=== PATIENT | female | born 1945 | race Caucasian/White ===

== ENCOUNTER 2017-10-13 12:38 | Emergency (ER) | payer MEDICARE, OTHER ==
[~2017-10-13] VITALS: Ht 162.6 cm; Wt 82.0 kg
[~2017-10-13 12:38] MED LIST: BENZ1TAB61 PO; CIPR500T87 PO; DIVA250T14 PO; DOCU-131 PO; LEVO50TA5 PO; ONDA4TAB12 PO; PANT40TA5 PO; RISP1TAB3 PO; RISP4TAB2 PO; SUCR1ORA11 PO
[2017-10-13] MEDS ORDERED: SODIUM CHLORIDE FLUSH 10ML SYR IVF ONE (13:00)
[2017-10-13] MEDS ORDERED: ONDANSETRON 2MG/ML, 2ML IVPush ONE (13:00)
[2017-10-13] MEDS ORDERED: SODIUM CHLORIDE 0.9% 1,000ML IVBOLUS ONE (13:00)
[2017-10-13] MEDS ORDERED: ONDANSETRON 2MG/ML, 2ML ONE ×2 (13:02→14:18)
[2017-10-13 13:15] LABS: BASOPHILS # (AUTO) 0.02 x10^3/uL (0-0.1); BASOPHILS % (AUTO) 0 % (0-1); EOSINOPHILS # (AUTO) 0.03 x10^3/uL (0-0.4); EOSINOPHILS % (AUTO) 0 % (1-7); LYMPHOCYTES # (AUTO) 0.38 x10^3/uL (1-3.4); LYMPHOCYTES % (AUTO) 5 % (22-44); MD NO; MEAN CORPUSCULAR HEMOGLOBIN 30.4 pg (27.0-34.8); MEAN CORPUSCULAR HGB CONC 33.2 g/dL (32.4-35.8); MEAN CORPUSCULAR VOLUME 91.7 fL (80-100); MEAN PLATELET VOLUME 8.3 fL (7.4-10.4); MONOCYTES # (AUTO) 0.66 x10^3/uL (0.2-0.8); MONOCYTES % (AUTO) 9 % (2-9); NEUTROPHILS # (AUTO) 6.53 x10^3/uL (1.8-6.8); NEUTROPHILS % (AUTO) 86 % (42-75); PLATELET COUNT 150 x10^3/uL (130-400); RED BLOOD COUNT 4.62 x10^6/uL (3.82-5.3); RED CELL DISTRIBUTION WIDTH 14.3 % (9.6-15.2)
[2017-10-13 13:20] VITALS: BP 142/80
[2017-10-13 13:24] LABS: ALANINE AMINOTRANSFERASE 20 U/L (12-78); ALBUMIN 3.3 g/dL (3.4-5.0); ANION GAP 7 mmol/L (5-15); CALCIUM 8.7 mg/dL (8.5-10.1); CHLORIDE 108 mmol/L (98-107); CREATININE 0.82 mg/dL (0.55-1.02)
[2017-10-13 13:28] LABS: ALKALINE PHOSPHATASE 67 U/L (45-117); BILIRUBIN,TOTAL 0.3 mg/dL (0.2-1.0); TOTAL PROTEIN 7.2 g/dL (6.4-8.2); TROPONIN I < 0.015 ng/mL (0.000-0.045)
[2017-10-13 14:13] LABS: MICROSCOPIC INDICATED
[2017-10-13 14:14] LABS: CULTURE INDICATED? YES
== END 2017-10-13 15:56 | disposition home or self-care (01) ==
LOC: ED 13:32
DX: R53.1 Weakness (principal); N39.0 Urinary tract infection, site not specified; Z90.49 Acquired absence of other specified parts of digestive tract
CPT/HCPCS: 36415; 70450; 71045; 80053; 81001; 84484; 85025; 86850; 86900; 87077; 87086; 87186; 93005; 96361; 96374; 99285; J2405; J7030

== ENCOUNTER 2018-08-09 13:07 | Inpatient (IN) | payer MEDICARE, OTHER ==
[~2018-08-09] VITALS: Ht 162.6 cm; Wt 95.9 kg
[2018-08-09 13:27] LABS: MEAN CORPUSCULAR HEMOGLOBIN 30.8 pg (27.0-34.8); MEAN CORPUSCULAR HGB CONC 32.6 g/dL (32.4-35.8); MEAN CORPUSCULAR VOLUME 94.6 fL (80-100); MEAN PLATELET VOLUME 8.7 fL (7.4-10.4); PLATELET COUNT 168 x10^3/uL (130-400); RED BLOOD COUNT 4.38 x10^6/uL (3.82-5.3); RED CELL DISTRIBUTION WIDTH 14.1 % (9.6-15.2)
[2018-08-09] MEDS ORDERED: PLEASE ENTER HEIGHT AND WEIGHT MC SCH ×2 (13:30→17:00)
[2018-08-09] MEDS ORDERED: SODIUM CHLORIDE 0.9% 1,000ML IVBOLUS ONE ×2 (13:30→14:00)
[2018-08-09] MEDS ORDERED: AMPICILLIN/SULBACTAM 3 GM in SODIUM CHLORIDE 0.9% 100 ML IV ONE (13:30)
[2018-08-09] MEDS ORDERED: PLEASE ENTER ALLERGIES MC SCH (13:30)
[2018-08-09] MEDS ORDERED: EPINEPHRINE SYRINGE 0.1 MG/ML, 10ML ONE (13:33)
[2018-08-09] MEDS ORDERED: NOREPINEPHRINE 1 MG/ML, 4ML ONE (13:34)
[2018-08-09 13:38] LABS: INTERNATIONAL NORMALIZED RATIO 1.18 (0.93-1.1); PROTHROMBIN TIME 12.2 Seconds (9.6-11.5)
[2018-08-09 13:40] LABS: ALANINE AMINOTRANSFERASE 161 U/L (12-78); ALBUMIN 2.3 g/dL (3.4-5.0); ANION GAP 18 mmol/L (5-15); CALCIUM 7.4 mg/dL (8.5-10.1); CHLORIDE 109 mmol/L (98-107)
[2018-08-09 13:42] LABS: MD YES
[2018-08-09 13:43] LABS: ALKALINE PHOSPHATASE 122 U/L (45-117); BILIRUBIN,TOTAL 0.3 mg/dL (0.2-1.0); TOTAL PROTEIN 5.4 g/dL (6.4-8.2)
[2018-08-09 13:44] LABS: BAND#(MANUAL) 1.13 x10^3/uL; BANDS%(MANUAL) 6 % (0-7); EOS#(MANUAL) 0.19 x10^3/uL (0.0-0.4); EOS% (MANUAL) 1 % (1-7); MONOS#(MANUAL) 1.32 x10^3/uL (0.3-2.7); MONOS% (MANUAL) 7 % (2-9)
[2018-08-09 13:45] LABS: LYMPHS% (MANUAL) 42 % (22-44); SEG#(MANUAL) 8.27 x10^3/uL (1.8-6.8); SEGS% (MANUAL) 44 % (42-75)
[2018-08-09 13:46] LABS: <RBC MORPHOLOGY> NORMAL
[2018-08-09 13:47] LABS: <PLATELET ESTIMATE> ADEQUATE; <PLT MORPHOLOGY> NORMAL PLT MORPH; TROPONIN I < 0.015 ng/mL (0.000-0.045)
[2018-08-09] MEDS ORDERED: PROPOFOL 100 ML IV PRN (13:56)
[2018-08-09] MEDS ORDERED: FENTANYL PF 100 MCG/2ML ONE ×2 (14:00→14:31)
[2018-08-09] MEDS: AMPICILLIN/SULBACTAM 3 GM in SODIUM CHLORIDE 0.9% 100 ML IV SCH ×2 (14:00→21:31)
[2018-08-09] MEDS ORDERED: FENTANYL PF 100 MCG/2ML IV ONE ×2 (14:00→15:00)
[2018-08-09] MEDS ORDERED: CODE BLUE RESPONSE XX ONE (14:00)
[2018-08-09 14:20] LABS: MICROSCOPIC AUTO
[2018-08-09 14:24] LABS: CULTURE INDICATED? YES
[2018-08-09] MEDS: SODIUM CHLORIDE 0.9% 1,000 ML IV SCH (14:28)
[2018-08-09] MEDS ORDERED: ENALAPRILAT 1.25 MG/ML, 2ML IVPush PRN (14:30)
[2018-08-09] MEDS ORDERED: OXYcodone IR 5MG TABLET PO PRN (14:30)
[2018-08-09] MEDS ORDERED: LORazepam 2 MG/ML, 1ML IVPush PRN (14:30)
[2018-08-09] MEDS ORDERED: ACETAMINOPHEN 325 MG TABLET PO PRN (14:30)
[2018-08-09] MEDS ORDERED: ONDANSETRON 2MG/ML, 2ML IVPush PRN (14:30)
[2018-08-09] MEDS ORDERED: BISACODYL 10 MG SUPP PR PRN (14:30)
[2018-08-09] MEDS ORDERED: ONDANSETRON ODT 4 MG PO PRN (14:30)
[2018-08-09] MEDS ORDERED: POLYETHYLENE GLYCOL 17 GM PACKET PO PRN (14:30)
[2018-08-09] MEDS ORDERED: SODIUM CHLORIDE 0.9% 1,000 ML IV ONE (14:30)
[2018-08-09] MEDS ORDERED: morphine SULFATE 10 MG/ML, 1ML IVPush PRN (14:30)
[2018-08-09] MEDS ORDERED: PROPOFOL 10 MG/ML, 20ML ONE (14:31)
[2018-08-09] MEDS ORDERED: PROPOFOL 100 ML IV ONE (14:32)
[2018-08-09] MEDS ORDERED: NOREPINEPHRINE 4 MG in SODIUM CHLORIDE 0.9% 246 ML IV PRN ×2 (14:52→18:30)
[2018-08-09 15:04] LABS: FREE T4 (FREE THYROXINE) 0.86 ng/dL (0.76-1.46); THYROID STIMULATING HORMONE 4.85 mIU/L (0.358-3.740)
[2018-08-09 15:29] LABS: HEMOGLOBIN A1C 5.5 % (4.2-6.3)
[2018-08-09] MEDS: INSULIN LISPRO 100 UNITS/ML, PEN SQ-INSULIN SCH ×2 (16:00→21:00)
[2018-08-09 16:03] VITALS: BP 101/72
[2018-08-09] MEDS ORDERED: FENTANYL PF 250 MCG in SODIUM CHLORIDE 0.9% 245 ML IV PRN (17:13)
[2018-08-09] MEDS ORDERED: SODIUM PHOSPHATE 20 MMOL in SODIUM CHLORIDE 0.9% 250 ML IVPB PRN (17:13)
[2018-08-09] MEDS: PLEASE ENTER HEIGHT MC SCH (17:28)
[2018-08-09] MEDS ORDERED: PHARMACY MAY ADJ FOR RENAL FX MC SCH (17:30)
[2018-08-09] MEDS: KSCALE TO 4.0 IV SCH ×2 (17:30→21:30)
[2018-08-09] MEDS ORDERED: FENTANYL PF 100 MCG/2ML IVPush PRN (17:30)
[2018-08-09] MEDS ORDERED: LIDOCAINE-MPF 1%, 2ML ENDO PRN (17:30)
[2018-08-09] MEDS ORDERED: VECURONIUM 10 MG IVPush PRN (17:30)
[2018-08-09] MEDS: ENOXAPARIN 40 MG/0.4 ML SQ SCH (17:41)
[2018-08-09] MEDS ORDERED: MAGNESIUM SULFATE 1 GM in SODIUM CHLORIDE 0.9% 50 ML IVPB PRN (18:00)
[2018-08-09] MEDS: BUSPIRONE 10 MG TABLET NG SCH (18:36)
[2018-08-09 18:40] LABS: TROPONIN I 0.143 ng/mL (0.000-0.045)
[2018-08-09] MEDS ORDERED: MIDAZOLAM 1 MG/ML, 2ML IVPush ONE (19:30)
[2018-08-09] MEDS ORDERED: MIDAZOLAM HCL 25 MG in SODIUM CHLORIDE 0.9% 245 ML IV PRN (19:30)
[2018-08-09] MEDS ORDERED: VASOPRESSIN 100 UNIT in SODIUM CHLORIDE 0.9% 495 ML IV PRN (19:30)
[2018-08-09] MEDS ORDERED: PHENYLEPHRINE 20 MG in SODIUM CHLORIDE 0.9% 248 ML IV PRN (19:30)
[2018-08-09] MEDS ORDERED: MAGNESIUM SULFATE 4 GM in SODIUM CHLORIDE 0.9% 100 ML IV ONE (19:30)
[2018-08-09] MEDS ORDERED: SODIUM BICARB 8.4%, 50ML SYRINGE IVPush ONE (19:30)
[2018-08-09] MEDS ORDERED: POTASSIUM CHLORIDE 30 MEQ in SODIUM CHLORIDE 0.9% 100 ML IV ONE (19:30)
[2018-08-09] MEDS: ARTIFICIAL TEARS OINT 3.5 GM EACHEYE SCH (20:13)
[2018-08-09] MEDS ORDERED: FENTANYL PF 2,500 MCG in SODIUM CHLORIDE 0.9% 200 ML IV PRN (20:32)
[2018-08-09] MEDS ORDERED: DIVALPROEX 250 MG TAB.ER.24H PO SCH (21:00)
[2018-08-09] MEDS ORDERED: RISPERIDONE 1 MG TABLET PO SCH (21:00)
[2018-08-09] MEDS: PROPOFOL 100 ML IV PRN (21:27)
[2018-08-09] MEDS: FAMOTIDINE 20 MG/2 ML IVPush SCH (21:31)
[2018-08-09] MEDS: BENZTROPINE 1 MG TABLET PO SCH (21:31)
[2018-08-09] MEDS ORDERED: DIVALPROEX 125 MG CAP.SPRINK PO SCH (21:35)
[2018-08-10 00:17] LABS: TROPONIN I 0.896 ng/mL (0.000-0.045)
[2018-08-10] MEDS: PLEASE ENTER HEIGHT MC SCH (01:28)
[2018-08-10] MEDS: KSCALE TO 4.0 IV SCH ×6 (01:30→21:30)
[2018-08-10] MEDS ORDERED: POTASSIUM CHLORIDE PMX 100 ML IV ONE (01:30)
[2018-08-10] MEDS: ARTIFICIAL TEARS OINT 3.5 GM EACHEYE SCH ×3 (01:55→17:44)
[2018-08-10] MEDS: BUSPIRONE 10 MG TABLET NG SCH ×3 (02:00→17:44)
[2018-08-10] MEDS: AMPICILLIN/SULBACTAM 3 GM in SODIUM CHLORIDE 0.9% 100 ML IV SCH ×4 (03:03→20:17)
[2018-08-10 05:20] LABS: BASOPHILS % (AUTO) 0 % (0-1); EOSINOPHILS # (AUTO) 0.01 x10^3/uL (0-0.4); EOSINOPHILS % (AUTO) 0 % (1-7); LYMPHOCYTES # (AUTO) 0.89 x10^3/uL (1-3.4); LYMPHOCYTES % (AUTO) 6 % (22-44); MD NO; MEAN CORPUSCULAR HGB CONC 33.4 g/dL (32.4-35.8); MEAN CORPUSCULAR VOLUME 92.7 fL (80-100); MEAN PLATELET VOLUME 8.2 fL (7.4-10.4); MONOCYTES # (AUTO) 0.86 x10^3/uL (0.2-0.8); MONOCYTES % (AUTO) 5 % (2-9); NEUTROPHILS # (AUTO) 14.26 x10^3/uL (1.8-6.8); NEUTROPHILS % (AUTO) 89 % (42-75); PLATELET COUNT 166 x10^3/uL (130-400); RED BLOOD COUNT 4.18 x10^6/uL (3.82-5.3); RED CELL DISTRIBUTION WIDTH 14.1 % (9.6-15.2)
[2018-08-10 05:29] LABS: ALBUMIN 2.3 g/dL (3.4-5.0); ANION GAP 10 mmol/L (5-15); CALCIUM 6.8 mg/dL (8.5-10.1); CHLORIDE 117 mmol/L (98-107)
[2018-08-10 05:32] LABS: ALANINE AMINOTRANSFERASE 134 U/L (12-78); ALKALINE PHOSPHATASE 78 U/L (45-117); BILIRUBIN,TOTAL 0.3 mg/dL (0.2-1.0); CREATININE 0.65 mg/dL (0.55-1.02); TOTAL PROTEIN 5.2 g/dL (6.4-8.2)
[2018-08-10] MEDS: PROPOFOL 100 ML IV PRN ×2 (06:04→13:02)
[2018-08-10] MEDS: SODIUM CHLORIDE 0.9% 1,000 ML IV SCH ×2 (06:05→14:48)
[2018-08-10] MEDS: INSULIN LISPRO 100 UNITS/ML, PEN SQ-INSULIN SCH ×4 (07:00→21:00)
[2018-08-10] MEDS: SENNA/DOCUSATE TABLET PO SCH (08:48)
[2018-08-10] MEDS: FAMOTIDINE 20 MG/2 ML IVPush SCH ×2 (09:21→20:52)
[2018-08-10] MEDS: LEVOTHYROXINE 50 MCG TABLET PO SCH (09:22)
[2018-08-10] MEDS: BENZTROPINE 1 MG TABLET PO SCH ×2 (09:22→20:53)
[2018-08-10] MEDS: RISPERIDONE 1 MG/ML ORAL SOLN PO SCH ×2 (09:59→21:01)
[2018-08-10] MEDS: VALPROATE SODIUM 250 MG/5 ML ORAL SOLN PO SCH ×2 (09:59→20:52)
[2018-08-10] MEDS: NOREPINEPHRINE 8 MG in SODIUM CHLORIDE 0.9% 242 ML IV PRN ×2 (10:55→22:39)
[2018-08-10] MEDS ORDERED: SODIUM CHLORIDE 0.9% 1,000ML IVBOLUS ONE (13:30)
[2018-08-10] MEDS: ENOXAPARIN 40 MG/0.4 ML SQ SCH (14:48)
[2018-08-10 14:53] LABS: ANION GAP 11 mmol/L (5-15); CALCIUM 7.5 mg/dL (8.5-10.1); CHLORIDE 118 mmol/L (98-107); CREATININE 0.57 mg/dL (0.55-1.02)
[2018-08-10] MEDS ORDERED: FUROSEMIDE 20 MG/2 ML ONE (15:10)
[2018-08-10] MEDS ORDERED: FUROSEMIDE 20 MG/2 ML IV ONE (15:30)
[2018-08-11] MEDS: BUSPIRONE 10 MG TABLET NG SCH (01:04)
[2018-08-11] MEDS: ARTIFICIAL TEARS OINT 3.5 GM EACHEYE SCH ×3 (01:04→16:08)
[2018-08-11] MEDS: KSCALE TO 4.0 IV SCH ×4 (01:30→14:31)
[2018-08-11] MEDS: AMPICILLIN/SULBACTAM 3 GM in SODIUM CHLORIDE 0.9% 100 ML IV SCH ×4 (01:57→20:05)
[2018-08-11] MEDS: PROPOFOL 100 ML IV PRN (05:03)
[2018-08-11 06:15] LABS: MEAN CORPUSCULAR HEMOGLOBIN 31.3 pg (27.0-34.8); MEAN CORPUSCULAR HGB CONC 34.2 g/dL (32.4-35.8); MEAN CORPUSCULAR VOLUME 91.5 fL (80-100); MEAN PLATELET VOLUME 8.9 fL (7.4-10.4); PLATELET COUNT 119 x10^3/uL (130-400); RED BLOOD COUNT 3.95 x10^6/uL (3.82-5.3); RED CELL DISTRIBUTION WIDTH 14.3 % (9.6-15.2)
[2018-08-11] MEDS: NOREPINEPHRINE 8 MG in SODIUM CHLORIDE 0.9% 242 ML IV PRN (06:16)
[2018-08-11 06:17] LABS: CALCIUM 7.1 mg/dL (8.5-10.1); CHLORIDE 117 mmol/L (98-107)
[2018-08-11 06:23] LABS: ALANINE AMINOTRANSFERASE 100 U/L (12-78); ALBUMIN 2.3 g/dL (3.4-5.0); ALKALINE PHOSPHATASE 73 U/L (45-117); ANION GAP 11 mmol/L (5-15); BILIRUBIN,TOTAL 0.4 mg/dL (0.2-1.0); CREATININE 0.49 mg/dL (0.55-1.02); TOTAL PROTEIN 5.2 g/dL (6.4-8.2)
[2018-08-11 06:32] LABS: MD YES
[2018-08-11 06:36] LABS: <RBC MORPHOLOGY> NORMAL; BAND#(MANUAL) 1.82 x10^3/uL; BANDS%(MANUAL) 13 % (0-7); LYMPH#(MANUAL) 1.12 x10^3/uL (1-3.4); LYMPHS% (MANUAL) 8 % (22-44); MONOS#(MANUAL) 0.14 x10^3/uL (0.3-2.7); MONOS% (MANUAL) 1 % (2-9); SEG#(MANUAL) 10.92 x10^3/uL (1.8-6.8); SEGS% (MANUAL) 78 % (42-75)
[2018-08-11 06:37] LABS: <PLATELET ESTIMATE> DECREASED; <PLT MORPHOLOGY> NORMAL PLT MORPH
[2018-08-11] MEDS ORDERED: POTASSIUM CHLORIDE PMX 100 ML IV ONE ×3 (07:00→14:30)
[2018-08-11] MEDS: INSULIN LISPRO 100 UNITS/ML, PEN SQ-INSULIN SCH (08:12)
[2018-08-11] MEDS: BENZTROPINE 1 MG TABLET PO SCH ×2 (09:07→21:39)
[2018-08-11] MEDS: RISPERIDONE 1 MG/ML ORAL SOLN PO SCH ×2 (09:08→21:40)
[2018-08-11] MEDS: SENNA/DOCUSATE TABLET PO SCH (09:08)
[2018-08-11] MEDS: VALPROATE SODIUM 250 MG/5 ML ORAL SOLN PO SCH ×2 (09:08→21:39)
[2018-08-11] MEDS: FAMOTIDINE 20 MG/2 ML IVPush SCH ×2 (10:03→21:39)
[2018-08-11] MEDS: LEVOTHYROXINE 50 MCG TABLET PO SCH (10:03)
[2018-08-11] MEDS: SODIUM CHLORIDE 0.9% 1,000 ML IV SCH ×4 (10:04→22:29)
[2018-08-11] MEDS ORDERED: CALCIUM CHLORIDE 13.6 MEQ in DEXTROSE 5% 100 ML IV ONE (11:00)
[2018-08-11] MEDS: ENOXAPARIN 40 MG/0.4 ML SQ SCH (15:12)
[2018-08-11] MEDS ORDERED: CALCIUM CHLORIDE IV ONE (16:00)
[2018-08-11] MEDS ORDERED: DEXTROSE 5% IV ONE (16:00)
[2018-08-11] MEDS ORDERED: SODIUM CHLORIDE 0.9%, 500ML IVBOLUS ONE (18:30)
[2018-08-12] MEDS: ARTIFICIAL TEARS OINT 3.5 GM EACHEYE SCH ×3 (00:52→17:33)
[2018-08-12] MEDS: AMPICILLIN/SULBACTAM 3 GM in SODIUM CHLORIDE 0.9% 100 ML IV SCH ×4 (01:58→20:16)
[2018-08-12 04:22] LABS: ALANINE AMINOTRANSFERASE 56 U/L (12-78); ALBUMIN 1.8 g/dL (3.4-5.0); ANION GAP 8 mmol/L (5-15); CALCIUM 7.4 mg/dL (8.5-10.1); CHLORIDE 120 mmol/L (98-107); CREATININE 0.49 mg/dL (0.55-1.02); TRIGLYCERIDES 92 mg/dL (50-200)
[2018-08-12 04:24] LABS: ALKALINE PHOSPHATASE 56 U/L (45-117); BILIRUBIN,TOTAL 0.4 mg/dL (0.2-1.0); TOTAL PROTEIN 4.6 g/dL (6.4-8.2)
[2018-08-12 04:46] LABS: MD YES; MEAN CORPUSCULAR HEMOGLOBIN 31.5 pg (27.0-34.8); MEAN CORPUSCULAR HGB CONC 34.5 g/dL (32.4-35.8); MEAN CORPUSCULAR VOLUME 91.1 fL (80-100); MEAN PLATELET VOLUME 9.2 fL (7.4-10.4); PLATELET COUNT 80 x10^3/uL (130-400); RED BLOOD COUNT 3.27 x10^6/uL (3.82-5.3); RED CELL DISTRIBUTION WIDTH 14.1 % (9.6-15.2)
[2018-08-12 04:48] LABS: <PLATELET ESTIMATE> DECREASED; <PLT MORPHOLOGY> NORMAL PLT MORPH; <RBC MORPHOLOGY> NORMAL; BAND#(MANUAL) 0.81 x10^3/uL; BANDS%(MANUAL) 10 % (0-7); LYMPH#(MANUAL) 0.57 x10^3/uL (1-3.4); LYMPHS% (MANUAL) 7 % (22-44); MONOS#(MANUAL) 0.32 x10^3/uL (0.3-2.7); MONOS% (MANUAL) 4 % (2-9); SEGS% (MANUAL) 79 % (42-75)
[2018-08-12] MEDS: FAMOTIDINE 20 MG/2 ML IVPush SCH ×2 (08:50→20:16)
[2018-08-12] MEDS: BENZTROPINE 1 MG TABLET PO SCH ×2 (08:50→20:16)
[2018-08-12] MEDS: LEVOTHYROXINE 50 MCG TABLET PO SCH (08:50)
[2018-08-12] MEDS: SENNA/DOCUSATE TABLET PO SCH (08:50)
[2018-08-12] MEDS: VALPROATE SODIUM 250 MG/5 ML ORAL SOLN PO SCH ×2 (08:51→20:16)
[2018-08-12] MEDS: RISPERIDONE 1 MG/ML ORAL SOLN PO SCH ×2 (08:51→20:16)
[2018-08-12] MEDS ORDERED: FENTANYL PF 2,500 MCG in SODIUM CHLORIDE 0.9% 200 ML IV PRN (09:00)
[2018-08-12] MEDS ORDERED: FENTANYL PF 100 MCG/2ML IVPush PRN (09:30)
[2018-08-12] MEDS ORDERED: hydrALAzine 20 MG/ML, 1ML ONE (10:06)
[2018-08-12] MEDS ORDERED: hydrALAzine 20 MG/ML, 1ML IV PRN (10:30)
[2018-08-12] MEDS: ENOXAPARIN 40 MG/0.4 ML SQ SCH (14:20)
[2018-08-13] MEDS: ARTIFICIAL TEARS OINT 3.5 GM EACHEYE SCH ×3 (00:50→18:07)
[2018-08-13] MEDS ORDERED: LACTATED RINGERS 500 ML IVBOLUS ONE ×2 (01:00→02:00)
[2018-08-13] MEDS: AMPICILLIN/SULBACTAM 3 GM in SODIUM CHLORIDE 0.9% 100 ML IV SCH ×4 (02:15→20:22)
[2018-08-13 04:28] LABS: MEAN CORPUSCULAR HEMOGLOBIN 31.4 pg (27.0-34.8); MEAN CORPUSCULAR HGB CONC 34.2 g/dL (32.4-35.8); MEAN CORPUSCULAR VOLUME 91.7 fL (80-100); MEAN PLATELET VOLUME 8.9 fL (7.4-10.4); PLATELET COUNT 72 x10^3/uL (130-400); RED BLOOD COUNT 2.89 x10^6/uL (3.82-5.3); RED CELL DISTRIBUTION WIDTH 14.7 % (9.6-15.2)
[2018-08-13 04:35] LABS: ALANINE AMINOTRANSFERASE 42 U/L (12-78); ALBUMIN 1.7 g/dL (3.4-5.0); ANION GAP 8 mmol/L (5-15); CALCIUM 7.3 mg/dL (8.5-10.1); CHLORIDE 119 mmol/L (98-107); CREATININE 0.46 mg/dL (0.55-1.02)
[2018-08-13 04:37] LABS: ALKALINE PHOSPHATASE 53 U/L (45-117); BILIRUBIN,TOTAL 0.6 mg/dL (0.2-1.0); TOTAL PROTEIN 4.7 g/dL (6.4-8.2)
[2018-08-13 04:59] LABS: MD YES
[2018-08-13 05:01] LABS: BAND#(MANUAL) 0.23 x10^3/uL; BANDS%(MANUAL) 3 % (0-7); LYMPH#(MANUAL) 0.78 x10^3/uL (1-3.4); LYMPHS% (MANUAL) 10 % (22-44); MONOS#(MANUAL) 0.39 x10^3/uL (0.3-2.7); MONOS% (MANUAL) 5 % (2-9); SEGS% (MANUAL) 82 % (42-75)
[2018-08-13 05:02] LABS: <PLATELET ESTIMATE> DECREASED; <PLT MORPHOLOGY> NORMAL PLT MORPH; ANISOCYTOSIS 1+
[2018-08-13] MEDS ORDERED: POTASSIUM PHOSPHATE 44 MEQ in SODIUM CHLORIDE 0.9% 500 ML IV ONE (08:00)
[2018-08-13] MEDS: FAMOTIDINE 20 MG/2 ML IVPush SCH ×2 (08:13→21:24)
[2018-08-13] MEDS: SENNA/DOCUSATE TABLET PO SCH (08:13)
[2018-08-13] MEDS: BENZTROPINE 1 MG TABLET PO SCH ×2 (08:13→21:25)
[2018-08-13] MEDS: ENALAPRILAT 1.25 MG/ML, 2ML IV PRN (08:13)
[2018-08-13] MEDS: LEVOTHYROXINE 50 MCG TABLET PO SCH (08:14)
[2018-08-13] MEDS: VALPROATE SODIUM 250 MG/5 ML ORAL SOLN PO SCH ×2 (08:14→21:24)
[2018-08-13] MEDS: RISPERIDONE 1 MG/ML ORAL SOLN PO SCH ×2 (08:15→21:25)
[2018-08-13] MEDS ORDERED: FENTANYL PF 2,500 MCG in SODIUM CHLORIDE 0.9% 200 ML IV PRN (10:00)
[2018-08-13] MEDS: hydrALAzine 20 MG/ML, 1ML IV PRN (12:51)
[2018-08-13] MEDS: ENOXAPARIN 40 MG/0.4 ML SQ SCH (14:44)
[2018-08-13] MEDS ORDERED: SODIUM CHLORIDE 0.9%, 500ML IVBOLUS ONE (15:00)
[2018-08-14] MEDS: hydrALAzine 20 MG/ML, 1ML IV PRN (01:44)
[2018-08-14] MEDS: ARTIFICIAL TEARS OINT 3.5 GM EACHEYE SCH ×3 (01:46→17:59)
[2018-08-14] MEDS: AMPICILLIN/SULBACTAM 3 GM in SODIUM CHLORIDE 0.9% 100 ML IV SCH ×4 (01:51→19:52)
[2018-08-14] MEDS: LABETALOL 5MG/ML, 20ML IVPush PRN ×3 (02:02→21:31)
[2018-08-14] MEDS ORDERED: LORazepam 2 MG/ML, 1ML ONE ×2 (02:13→14:06)
[2018-08-14] MEDS ORDERED: LORazepam 2 MG/ML, 1ML IVPush ONE ×3 (02:30→14:30)
[2018-08-14] MEDS: ENALAPRILAT 1.25 MG/ML, 2ML IV PRN (05:29)
[2018-08-14 08:55] LABS: MEAN CORPUSCULAR HEMOGLOBIN 30.4 pg (27.0-34.8); MEAN CORPUSCULAR HGB CONC 33.5 g/dL (32.4-35.8); MEAN CORPUSCULAR VOLUME 90.7 fL (80-100); RED BLOOD COUNT 2.97 x10^6/uL (3.82-5.3); RED CELL DISTRIBUTION WIDTH 15.1 % (9.6-15.2)
[2018-08-14 09:05] LABS: FIO2 30 %
[2018-08-14] MEDS: LEVETIRACETAM 500 MG in SODIUM CHLORIDE 0.9% 100 ML IV SCH ×2 (09:11→20:50)
[2018-08-14 09:16] LABS: MEAN PLATELET VOLUME 8.9 fL (7.4-10.4); PLATELET COUNT 100 x10^3/uL (130-400)
[2018-08-14 09:17] LABS: MD YES
[2018-08-14 09:19] LABS: BAND#(MANUAL) 0.13 x10^3/uL; BANDS%(MANUAL) 2 % (0-7); EOS#(MANUAL) 0.13 x10^3/uL (0.0-0.4); EOS% (MANUAL) 2 % (1-7); LYMPH#(MANUAL) 0.78 x10^3/uL (1-3.4); LYMPHS% (MANUAL) 12 % (22-44); MONOS#(MANUAL) 0.26 x10^3/uL (0.3-2.7); MONOS% (MANUAL) 4 % (2-9); SEGS% (MANUAL) 80 % (42-75)
[2018-08-14] MEDS: SENNA/DOCUSATE TABLET PO SCH (09:19)
[2018-08-14] MEDS: VALPROATE SODIUM 250 MG/5 ML ORAL SOLN PO SCH ×2 (09:19→20:50)
[2018-08-14 09:20] LABS: <PLATELET ESTIMATE> DECREASED; <PLT MORPHOLOGY> NORMAL PLT MORPH; <RBC MORPHOLOGY> NORMAL
[2018-08-14] MEDS: RISPERIDONE 1 MG/ML ORAL SOLN PO SCH ×2 (09:20→20:51)
[2018-08-14] MEDS: LEVOTHYROXINE 50 MCG TABLET PO SCH (09:20)
[2018-08-14] MEDS: FAMOTIDINE 20 MG/2 ML IVPush SCH ×2 (09:20→20:50)
[2018-08-14] MEDS: BENZTROPINE 1 MG TABLET PO SCH ×2 (09:20→20:50)
[2018-08-14] MEDS: POTASSIUM CHLORIDE 10% 40 MEQ/30 ML UDC PO SCH ×2 (09:20→20:50)
[2018-08-14 09:28] LABS: ANION GAP 7 mmol/L (5-15); CALCIUM 7.3 mg/dL (8.5-10.1); CHLORIDE 115 mmol/L (98-107)
[2018-08-14 09:29] LABS: CREATININE 0.35 mg/dL (0.55-1.02)
[2018-08-14] MEDS: ENOXAPARIN 40 MG/0.4 ML SQ SCH (14:14)
[2018-08-15] MEDS: ARTIFICIAL TEARS OINT 3.5 GM EACHEYE SCH ×3 (01:47→17:42)
[2018-08-15] MEDS: AMPICILLIN/SULBACTAM 3 GM in SODIUM CHLORIDE 0.9% 100 ML IV SCH ×4 (02:34→19:29)
[2018-08-15 04:07] LABS: FIO2 30 %
[2018-08-15 06:27] LABS: MEAN CORPUSCULAR HEMOGLOBIN 30.6 pg (27.0-34.8); MEAN CORPUSCULAR HGB CONC 33.4 g/dL (32.4-35.8); MEAN CORPUSCULAR VOLUME 91.7 fL (80-100); MEAN PLATELET VOLUME 8.4 fL (7.4-10.4); PLATELET COUNT 122 x10^3/uL (130-400); RED BLOOD COUNT 3.05 x10^6/uL (3.82-5.3)
[2018-08-15 06:43] LABS: MD YES
[2018-08-15 06:45] LABS: BAND#(MANUAL) 0.51 x10^3/uL; BANDS%(MANUAL) 7 % (0-7); EOS#(MANUAL) 0.22 x10^3/uL (0.0-0.4); EOS% (MANUAL) 3 % (1-7); LYMPH#(MANUAL) 0.73 x10^3/uL (1-3.4); LYMPHS% (MANUAL) 10 % (22-44); METAMYELOCYTES# (MANUAL) 0.07 x10^3/uL (0-0); METAMYELOCYTES% (MANUAL) 1 % (0-1); MONOS#(MANUAL) 0.66 x10^3/uL (0.3-2.7); MONOS% (MANUAL) 9 % (2-9); SEG#(MANUAL) 5.11 x10^3/uL (1.8-6.8); SEGS% (MANUAL) 70 % (42-75)
[2018-08-15 06:46] LABS: POLYCHROMASIA 1+
[2018-08-15 06:47] LABS: <PLATELET ESTIMATE> DECREASED; <PLT MORPHOLOGY> NORMAL PLT MORPH
[2018-08-15] MEDS: LABETALOL 5MG/ML, 20ML IVPush PRN (07:34)
[2018-08-15 07:36] LABS: ANION GAP 4 mmol/L (5-15); CALCIUM 7.7 mg/dL (8.5-10.1); CHLORIDE 116 mmol/L (98-107); CREATININE 0.43 mg/dL (0.55-1.02)
[2018-08-15] MEDS ORDERED: SCOPOLAMINE PATCH, 1.5MG PATCH.TD72 TD SCH (08:30)
[2018-08-15] MEDS: SENNA/DOCUSATE TABLET PO SCH (08:45)
[2018-08-15] MEDS: LEVOTHYROXINE 50 MCG TABLET PO SCH (08:45)
[2018-08-15] MEDS: VALPROATE SODIUM 250 MG/5 ML ORAL SOLN PO SCH ×2 (08:46→20:35)
[2018-08-15] MEDS: RISPERIDONE 1 MG/ML ORAL SOLN PO SCH ×2 (08:46→20:35)
[2018-08-15] MEDS: FAMOTIDINE 20 MG/2 ML IVPush SCH ×2 (08:46→20:35)
[2018-08-15] MEDS: LEVETIRACETAM 500 MG in SODIUM CHLORIDE 0.9% 100 ML IV SCH ×2 (08:47→20:31)
[2018-08-15] MEDS: BENZTROPINE 1 MG TABLET PO SCH ×2 (08:47→20:35)
[2018-08-15] MEDS: MIDAZOLAM HCL 25 MG in SODIUM CHLORIDE 0.9% 245 ML IV PRN ×2 (09:11→22:59)
[2018-08-15] MEDS ORDERED: MIDAZOLAM 1 MG/ML, 5ML ONE (09:41)
[2018-08-15] MEDS ORDERED: FENTANYL PF 2,500 MCG in SODIUM CHLORIDE 0.9% 200 ML IV PRN (10:00)
[2018-08-15] MEDS ORDERED: MIDAZOLAM 1 MG/ML, 5ML IVPush ONE (10:00)
[2018-08-15] MEDS: ENOXAPARIN 40 MG/0.4 ML SQ SCH (14:01)
[2018-08-16] MEDS: ARTIFICIAL TEARS OINT 3.5 GM EACHEYE SCH ×3 (02:04→19:06)
[2018-08-16] MEDS: AMPICILLIN/SULBACTAM 3 GM in SODIUM CHLORIDE 0.9% 100 ML IV SCH ×4 (02:21→20:47)
[2018-08-16] MEDS: LEVETIRACETAM 500 MG in SODIUM CHLORIDE 0.9% 100 ML IV SCH ×2 (09:27→21:51)
[2018-08-16] MEDS: RISPERIDONE 1 MG/ML ORAL SOLN PO SCH ×2 (09:28→20:47)
[2018-08-16] MEDS: FAMOTIDINE 20 MG/2 ML IVPush SCH ×2 (09:28→20:48)
[2018-08-16] MEDS: LEVOTHYROXINE 50 MCG TABLET PO SCH (09:28)
[2018-08-16] MEDS: BENZTROPINE 1 MG TABLET PO SCH ×2 (09:28→20:48)
[2018-08-16] MEDS: VALPROATE SODIUM 250 MG/5 ML ORAL SOLN PO SCH ×2 (09:28→20:47)
[2018-08-16] MEDS: SENNA/DOCUSATE TABLET PO SCH (09:28)
[2018-08-16] MEDS: ENOXAPARIN 40 MG/0.4 ML SQ SCH (13:58)
[2018-08-17] MEDS: ARTIFICIAL TEARS OINT 3.5 GM EACHEYE SCH ×2 (02:54→09:17)
[2018-08-17] MEDS: AMPICILLIN/SULBACTAM 3 GM in SODIUM CHLORIDE 0.9% 100 ML IV SCH ×3 (02:54→13:59)
[2018-08-17] MEDS: VALPROATE SODIUM 250 MG/5 ML ORAL SOLN PO SCH (07:59)
[2018-08-17] MEDS: RISPERIDONE 1 MG/ML ORAL SOLN PO SCH (08:00)
[2018-08-17] MEDS: SENNA/DOCUSATE TABLET PO SCH (08:01)
[2018-08-17] MEDS: FAMOTIDINE 20 MG/2 ML IVPush SCH (08:02)
[2018-08-17] MEDS: LEVOTHYROXINE 50 MCG TABLET PO SCH (08:02)
[2018-08-17] MEDS: BENZTROPINE 1 MG TABLET PO SCH (08:03)
[2018-08-17] MEDS: LEVETIRACETAM 500 MG in SODIUM CHLORIDE 0.9% 100 ML IV SCH (09:17)
[2018-08-17] MEDS: ENOXAPARIN 40 MG/0.4 ML SQ SCH (13:59)
== END 2018-08-17 14:35 | disposition expired | DRG 870 ==
LOC: MERGE 13:07 → EDBD 13:07 → ED 14:21 → EDIP 14:28 → CCU 16:52
PROVIDERS: ADMIT Internal Medicine; ATTEND Internal Medicine
PROC: 5A1955Z Respiratory Ventilation, Greater than 96 Consecutive Hours (ICD-10-PCS; principal; 2018-08-09)
PROC: 0BH18EZ Insertion of Endotracheal Airway into Trachea, Via Natural or Artificial Opening Endoscopic (ICD-10-PCS; 2018-08-09)
PROC: 5A12012 Performance of Cardiac Output, Single, Manual (ICD-10-PCS; 2018-08-09)
PROC: 02HV33Z Insertion of Infusion Device into Superior Vena Cava, Percutaneous Approach (ICD-10-PCS; 2018-08-09)
PROC: 0T9B70Z Drainage of Bladder with Drainage Device, Via Natural or Artificial Opening (ICD-10-PCS; 2018-08-09)
PROC: 04HY32Z Insertion of Monitoring Device into Lower Artery, Percutaneous Approach (ICD-10-PCS; 2018-08-09)
PROC: 4A133B1 Monitoring of Arterial Pressure, Peripheral, Percutaneous Approach (ICD-10-PCS; 2018-08-09)
PROC: 4A133J1 Monitoring of Arterial Pulse, Peripheral, Percutaneous Approach (ICD-10-PCS; 2018-08-09)
DX: A41.9 Sepsis, unspecified organism (principal); J69.0 Pneumonitis due to inhalation of food and vomit; J96.00 Acute respiratory failure, unspecified whether with hypoxia or hypercapnia; E43 Unspecified severe protein-calorie malnutrition; K72.00 Acute and subacute hepatic failure without coma; E87.0 Hyperosmolality and hypernatremia; E87.2 Acidosis; N39.0 Urinary tract infection, site not specified; G93.1 Anoxic brain damage, not elsewhere classified; R57.9 Shock, unspecified; F20.9 Schizophrenia, unspecified; F03.90 Unspecified dementia, unspecified severity, without behavioral disturbance, psychotic disturbance, mood disturbance, and anxiety; I25.10 Atherosclerotic heart disease of native coronary artery without angina pectoris; E03.9 Hypothyroidism, unspecified; B96.20 Unspecified Escherichia coli [E. coli] as the cause of diseases classified elsewhere; K21.9 Gastro-esophageal reflux disease without esophagitis; Z66 Do not resuscitate; I27.20 Pulmonary hypertension, unspecified; I46.9 Cardiac arrest, cause unspecified; K75.89 Other specified inflammatory liver diseases; Z51.5 Encounter for palliative care; R56.9 Unspecified convulsions; R73.9 Hyperglycemia, unspecified; Z90.49 Acquired absence of other specified parts of digestive tract; Z79.4 Long term (current) use of insulin; Z79.899 Other long term (current) drug therapy; Z79.1 Long term (current) use of non-steroidal anti-inflammatories (NSAID); Z79.2 Long term (current) use of antibiotics; Z68.36 Body mass index [BMI] 36.0-36.9, adult; Z88.8 Allergy status to other drugs, medicaments and biological substances
CPT/HCPCS: 36415; 36556; 36600; 51702; 70551; 71045; 80048; 80053; 80164; 81001; 82330; 82803; 82962; 83036; 83605; 83735; 84100; 84132; 84439; 84443; 84478; 84481; 84484; 85025; 85610; 85730; 87040; 87070; 87077; 87081; 87086; 87186; 87205; 92950; 93005; 93306; 94002; 94003; 95812; 99291; G0378; J0295; J1650; J1953; J2250; J2405; J2704; J3010; J3475; J3480; J7060; J7120; J0360; J1940; J2060; J3490; J7030; J7040; J7050